=== PATIENT | male | born 1950 | race Caucasian/White ===

== ENCOUNTER 2023-09-28 18:22 | Emergency (ER) | payer MEDICARE ==
[~2023-09-28] VITALS: Ht 170.2 cm; Wt 109.1 kg
[2023-09-28] MEDS ORDERED: ISOVUE-370 76% 100ML VIAL As Ordered ONE (18:46)
[2023-09-28 18:54] LABS: BASO % 0.2 % (0.0-1.0); EOS # 0.1 10^3/uL (0.0-0.5); EOS % 0.7 % (0.0-3.0); HEMATOCRIT 41.6 % (42.0-52.0); HEMOGLOBIN 13.9 g/dl (13.5-17.5); LYMPH # 1.1 10^3/uL (1.5-5.0); LYMPH % 12.8 % (24.0-44.0); MEAN CORPUSCULAR HGB CONC 33.4 g/dl (32.0-36.5); MEAN CORPUSCULAR VOLUME 92.9 fl (80.0-96.0); MONO # 0.6 10^3/uL (0.0-0.8); MONO % 7.2 % (2.0-8.0); NEUTROPHILS % 78.8 % (36.0-66.0); PLATELET COUNT, AUTOMATED 217 10^3/uL (150-450); RED BLOOD COUNT 4.48 10^6/uL (4.30-6.10); WHITE BLOOD COUNT 8.9 10^3/uL (4.0-10.0)
[2023-09-28 19:16] LABS: INR 2.34; PARTIAL THROMBOPLASTIN TIME 34.5 SECONDS (24.8-34.2); PROTHROMBIN TIME 24.8 SECONDS (12.5-14.5)
[2023-09-28] MEDS: OXcarbazepine 300 MG TAB PO STA (21:50)
[2023-09-28] MEDS ORDERED: TRIL150T PO (22:41)
[2023-09-28 23:00] VITALS: BP 158/87; TEMP 98.6; O2SAT 99
== END 2023-09-28 23:32 | disposition home or self-care (01) ==
LOC: M ED 18:22 → EDBD 18:22 → M ED 23:32
DX: G50.0 Trigeminal neuralgia (principal); E11.9 Type 2 diabetes mellitus without complications; I10 Essential (primary) hypertension
CPT/HCPCS: 70450; 70496; 71045; 80047; 80183; 85025; 85610; 85730; 93005; 93041; 94760; 99284; Q9967